=== PATIENT | female | born 1970 | race African-American/Black ===

== ENCOUNTER 2019-01-13 18:14 | Emergency (ER) | payer MEDICARE, OTHER ==
[~2019-01-13] VITALS: Ht 162.6 cm; Wt 59.1 kg
[~2019-01-13 18:14] MED LIST: NOCURR
[2019-01-13 18:33] VITALS: BP 134/79
== END 2019-01-13 21:22 | disposition home or self-care (01) ==
LOC: EMS 18:16
DX: R09.89 Other specified symptoms and signs involving the circulatory and respiratory systems (principal); R05 Cough; Z90.710 Acquired absence of both cervix and uterus